=== PATIENT | male | born 1990 | race Caucasian/White ===

== ENCOUNTER 2021-05-21 07:40 | Emergency (ER) | payer OTHER, SELFPAY ==
[2021-05-21 07:44] VITALS: BP 160/105; PULSE 110; RESP 22; TEMP 36.6; O2SAT 100; BMI 32.5
--- NOTE | 2021-05-21 08:02 | ED.PSYCH ---
HPI - Psych General Chief Complaint: Psychiatric Symptoms Stated Complaint: Depressed, violent, angry, drinking problem Time Seen by Provider: 05/21/21 08:02 Source: patient Mode of arrival: ambulatory Limitations: no limitations History of Present Illness MD complaint: suicidal ideation and feels depressed Onset (ago): day(s) Duration: constant History of same: Yes Relieving factors: none Exacerbating factors: alcohol Context: recent alcohol abuse Associated psychiatric symptoms: depression and suicidal ideation Associated symptoms: denies other symptoms Treatments prior to arrival: none If self harm: admits thoughts of self harm Related Data Allergies Allergy/AdvReac Type Severity Reaction Status Date / Time walnut Allergy Intermediate SWELLING Unverified 07/06/20 17:23 banana Allergy Hives Verified 05/21/21 08:03 Review of Systems Review of Systems: Constitutional : No Fever, No Chills ENT/Mouth : No Ear Pain, No Nasal Congestion, No sore throat Eyes: No Eye Pain, No Swelling, No Redness Cardiovascular : No Chest Pain, No SOB Respiratory : No Cough, No Sputum, No Dyspnea Gastrointestinal : No Nausea, No Vomiting, No Diarrhea, No Hematochezia, No Melena Genitourinary : No Dysuria, No Urinary Frequency, No Hematuria Musculoskeletal : No Myalgias Skin : No Skin Lesions, No rash Neuro : No Weakness, No Numbness, No Paresthesias, No Dizziness, No Headache Psych : positive Anxiety, positive Depression, positive SI no HI Heme/Lymph: No Lymphadenopathy Endocrine : No Polyuria, No Polydipsia All other systems reviewed and are negative PMFSH Past Medical History Attestation statement: The following information was validated with the patient. Medical History HTN (hypertension) Social History Social History (Updated 05/21/21 @ 08:24 by Liberty Oquendo DO) Alcohol intake: current Use of substances other than those prescribed or required for medical reasons: No Advance Directives: Yes Advance Directives Information Provided: Yes Advance Directives on File: No Physical Exam Vital Signs: Vital Signs: Last Vital Signs Temp 98.5 F 05/21/21 13:16 Pulse 100 05/21/21 13:16 Resp 20 05/21/21 13:16 BP 127/66 05/21/21 13:16 Pulse Ox 99 05/21/21 13:16 Body Mass Index 32.5 Appearance: Alert. Oriented X3. No acute distress. Eyes: Pupils equal, round and reactive to light. ENT: Pharynx normal. Neck: Normal inspection. Neck supple. CVS: Normal heart rate and rhythm. Pulses normal. Respiratory: No respiratory distress. Breath sounds normal. Abdomen: Soft and nontender. Skin: Skin warm and dry. Normal skin color. Normal skin turgor. Extremities: No lower extremity edema. No calf ttp Neuro: Oriented X 3. No motor deficit. No sensory deficit. CN 2-12 intact Psych: pos anxiety/depression, pos SI, no HI Course Course Course Narrative: request for repeat VS Physician observation started at 220pm. Patient placed in physician observation because the patient needed more time for BHN to evaluate him and see the need for psych admission. At the time observation was started the patient's vitals were stable, patient is alert and oriented improved after ativan, Neuro: nonfocal, CV RRR, Lungs clear per CARE team, working on EATs vs detox bed MDM - Psych MDM Narrative Medical decision making narrative: 30 yo male with etoh abuse here with SI - will need labs, BHN consult, PRN ativan dispo per N recommendations at this time. Lab Data Result diagrams: 05/21/21 08:36 05/21/21 08:36 Labs: Lab Results 05/21/21 05/21/21 05/21/21 Range/Units 08:36 08:36 08:36 WBC 5.8 (4.8-10.8) X10*3/uL RBC 5.03 (4.60-5.80) X10*6/uL Hgb 15.4 (14.0-18.0) g/dl Hct 46.0 (42-52) % MCV 91.5 (80-98) fL MCH 30.6 (27.0-33.0) pg MCHC 33.5 (31.0-36.0) g/dl RDW 13.2 (11.0-16.0) % Plt Count 309 (160-400) X10*3/uL MPV 8.7 L (9.4-12.4) fL Immature Gran % (Auto) 0.5 H (0.0-0.4) % Neut % (Auto) 53.8 (45-73) % Lymph % (Auto) 24.7 (20-40) % [place] % (Auto) 11.7 H (2-11) % Eos % (Auto) 8.6 H (0-4) % Baso % (Auto) 0.7 (0-2) % Lymph # (Auto) 1.4 (1.2-4.9) X10*3/uL [place] # (Auto) 0.7 (0.1-1.2) X10*3/uL Eos # (Auto) 0.5 H (0.0-0.4) X10*3/uL Baso # (Auto) 0.0 (0.0-0.2) X10*3/uL Abs Immat Gran (auto) 0.03 (0.00-0.03) X10*3/uL Absolute Neuts (auto) 3.1 (2.0-8.3) X10*3/uL Absolute Nucleated RBC 0.000 (0.0-0.012) X10*3/uL Nucleated RBC % (auto) 0.0 (0.0-0.2) /100WBC Sodium 141 (135-145) mmol/L Potassium 4.9 (3.3-5.1) mmol/L Chloride 106 (96-108) mmol/L Carbon Dioxide 28 (22-29) mmol/L Anion Gap 12 (12-20) BUN 8 L (9-16) mg/dL Creatinine 0.89 (0.5-1.4) mg/dL Estim Creat Clear Calc 117.9 Estimated GFR > 60 Random Glucose 93 (60-115) mg/dL Calcium 9.2 (8.4-10.2) mg/dL Magnesium 2.2 (1.6-2.6) mg/dL Total Bilirubin 0.4 (0.0-1.0) mg/dL Direct Bilirubin 0.2 (0.0-0.5) mg/dL AST 41 H (5-37) U/L ALT 69 H (0-40) U/L Alkaline Phosphatase 131 H (39-117) U/L Total Protein 7.1 (6.5-8.0) g/dL Albumin 4.3 (3.5-5.0) g/dL Urine Opiates Screen (Not Detect) Ur Barbiturates Screen (Not Detect) Ur Phencyclidine Scrn (Not Detect) Ur Amphetamines Screen (Not Detect) U Benzodiazepines Scrn (Not Detect) Urine Cocaine Screen (Not Detect) U Marijuana (THC) Screen (Not Detect) Ethyl Alcohol mg/dL COVID-19 (XUAN) Negative (Negative) COVID-19 Clin Com See Note 05/21/21 05/21/21 Range/Units 08:36 10:49 WBC (4.8-10.8) X10*3/uL RBC (4.60-5.80) X10*6/uL Hgb (14.0-18.0) g/dl Hct (42-52) % MCV (80-98) fL MCH (27.0-33.0) pg MCHC (31.0-36.0) g/dl RDW (11.0-16.0) % Plt Count (160-400) X10*3/uL MPV (9.4-12.4) fL Immature Gran % (Auto) (0.0-0.4) % Neut % (Auto) (45-73) % Lymph % (Auto) (20-40) % [place] % (Auto) (2-11) % Eos % (Auto) (0-4) % Baso % (Auto) (0-2) % Lymph # (Auto) (1.2-4.9) X10*3/uL [place] # (Auto) (0.1-1.2) X10*3/uL Eos # (Auto) (0.0-0.4) X10*3/uL Baso # (Auto) (0.0-0.2) X10*3/uL Abs Immat Gran (auto) (0.00-0.03) X10*3/uL Absolute Neuts (auto) (2.0-8.3) X10*3/uL Absolute Nucleated RBC (0.0-0.012) X10*3/uL Nucleated RBC % (auto) (0.0-0.2) /100WBC Sodium (135-145) mmol/L Potassium (3.3-5.1) mmol/L Chloride (96-108) mmol/L Carbon Dioxide (22-29) mmol/L Anion Gap (12-20) BUN (9-16) mg/dL Creatinine (0.5-1.4) mg/dL Estim Creat Clear Calc Estimated GFR Random Glucose (60-115) mg/dL Calcium (8.4-10.2) mg/dL Magnesium (1.6-2.6) mg/dL Total Bilirubin (0.0-1.0) mg/dL Direct Bilirubin (0.0-0.5) mg/dL AST (5-37) U/L ALT (0-40) U/L Alkaline Phosphatase (39-117) U/L Total Protein (6.5-8.0) g/dL Albumin (3.5-5.0) g/dL Urine Opiates Screen Not Detected (Not Detect) Ur Barbiturates Screen Not Detected (Not Detect) Ur Phencyclidine Scrn Not Detected (Not Detect) Ur Amphetamines Screen Not Detected (Not Detect) U Benzodiazepines Scrn Not Detected (Not Detect) Urine Cocaine Screen POSITIVE H (Not Detect) U Marijuana (THC) Screen POSITIVE H (Not Detect) Ethyl Alcohol 46 mg/dL COVID-19 (XUAN) (Negative) COVID-19 Clin Com Discharge Plan Discharge Clinical Impression: Substance abuse Depression Qualifiers: Depression Type: other depression Qualified Code(s): F32.89 - Other specified depressive episodes
[2021-05-21] MEDS: Acetaminophen 325 MG TABLET 650 MG PO (08:15)
[2021-05-21] MEDS: LORazepam 1 MG TABLET 2 MG PO (08:16)
[2021-05-21 08:44] LABS: Basophils Percent Auto 0.7 % (0-2); Eosinophils Absolute Auto 0.5 X10*3/uL (0.0-0.4); Eosinophils Percent Auto 8.6 % (0-4); Hemoglobin 15.4 g/dl (14.0-18.0); Imm Gran Abs Auto 0.03 X10*3/uL (0.00-0.03); Imm Gran Pct Auto 0.5 % (0.0-0.4); Lymphocytes Absolute Auto 1.4 X10*3/uL (1.2-4.9); Lymphocytes Percent Auto 24.7 % (20-40); MANUAL DIFF FLAG NO; Mean Corpuscular HGB Conc 33.5 g/dl (31.0-36.0); Mean Corpuscular Hemoglobin 30.6 pg (27.0-33.0); Mean Corpuscular Volume 91.5 fL (80-98); Mean Platelet Volume 8.7 fL (9.4-12.4); Monocytes Absolute Auto 0.7 X10*3/uL (0.1-1.2); Monocytes Percent Auto 11.7 % (2-11); Neutrophils Absolute Auto 3.1 X10*3/uL (2.0-8.3); Neutrophils Percent Auto 53.8 % (45-73); Platelet Count 309 X10*3/uL (160-400); Red Blood Count 5.03 X10*6/uL (4.60-5.80); Red Cell Distribution Width 13.2 % (11.0-16.0); White Blood Count 5.8 X10*3/uL (4.8-10.8)
[2021-05-21 08:58] LABS: COVID-19 Test Negative (Negative)
[2021-05-21 09:09] LABS: Alanine Aminotransferase 69 U/L (0-40); Albumin Level 4.3 g/dL (3.5-5.0); Alkaline Phosphatase 131 U/L (39-117); Anion Gap 12 (12-20); Aspartate Amino Transferase 41 U/L (5-37); Bilirubin Direct 0.2 mg/dL (0.0-0.5); Bilirubin Total 0.4 mg/dL (0.0-1.0); Blood Urea Nitrogen 8 mg/dL (9-16); Calcium 9.2 mg/dL (8.4-10.2); Carbon Dioxide 28 mmol/L (22-29); Chloride 106 mmol/L (96-108); Creatinine Clr Calc Pharmacy 117.9; Estimated Glomerular Filt Rate > 60; Glucose Random 93 mg/dL (60-115); Magnesium 2.2 mg/dL (1.6-2.6); Potassium 4.9 mmol/L (3.3-5.1); Sodium 141 mmol/L (135-145); Total Protein 7.1 g/dL (6.5-8.0)
[2021-05-21 09:21] LABS: Ethanol 46 mg/dL
[2021-05-21 11:36] LABS: Amphetamine Screen Urine Not Detected (Not Detect); Barbiturates, Urine Not Detected (Not Detect); Benzodiazepines Screen Urine Not Detected (Not Detect); Cannabinoid Screen Urine POSITIVE (Not Detect); Cocaine Screen Urine POSITIVE (Not Detect); Opiate Screen Urine Not Detected (Not Detect); Phencyclidine Screen Urine Not Detected (Not Detect)
--- NOTE | 2021-05-21 12:30 | PC.NURSE ---
CARE teamNicolás, at bedside for pt initial assessment.
[2021-05-21 13:16] VITALS: BP 127/66; PULSE 100; RESP 20; TEMP 36.9; O2SAT 99
--- NOTE | 2021-05-21 14:47 | MHC.RECOVSUP ---
Recovery Support note: Patient is a 30 year old Yoruba speaking male who presented to [facility] due to depression and SI. This life insurance underwriter met with patient to discuss his alcohol use and treatment options. Patient reports drinking 10+ beers and some liquor daily. Patient reports he gets grouchy when he does not drink. Patient was tearful as he reported a strong desire to stop drinking. Patient reports he has tried maintaining sobriety in the past but has been unsuccessful. Patient expressed interest in going to [facility] however reports he does not want to go to [place] or [place]. This life insurance underwriter contacted [facility] facilities and there are no beds available at this time. Discussed outpatient supports with patient, including IOP, outpatient therapy, recovery coaching and [facility] [place]. Patient was receptive of the information provided and was willing to meet with a Database Marketing Manager. Patient expressed interest in medications for alcohol use disorder. Discussed medications with patient and provided patient with information on the [facility]. Patient reports no questions at this time. Patient met with Baldo, Database Marketing Manager, and discussed the recovery community in [place]. Discussed case with CARE Team.
--- NOTE | 2021-05-22 06:17 | PC.NURSE ---
Patient slept through the night, denied distress, asymptomatic of withdrawal, care team and swimming coach working jointly to find detox bed for the patient, patient's behavior is calm, quiet, isolative, and appropriate. VSS, appetite good, patient is not on any medication at this time, will continue to monitor.
[2021-05-22 06:18] VITALS: BP 142/87; PULSE 65; RESP 16; TEMP 36.3; O2SAT 98
[2021-05-22 07:45] VITALS: BP 143/91; PULSE 71; RESP 17; TEMP 36.8; O2SAT 97
--- NOTE | 2021-05-22 09:31 | MHC.CARE ---
0900-Spoke with pt regarding his desire to enter a detox program. Pt is still interested, however he only wants to go to detox in [place], stating that other facilities are Too far away . Follow up e mail sent to [facility] (Recovery Team facilitated this) regarding the outcome of the conversation and pt's continued interest in detox and his stipulations. Will revisit this conversation with pt, when a bed becomes available.
--- NOTE | 2021-05-22 10:34 | PC.NURSE ---
PT HAS BEEN CALM AND COOPERATIVE WAITING FOR GROUP EXERCISE MANAGER, AND DETOX BED
--- NOTE | 2021-05-22 13:07 | MHC.RECOVSUP ---
? Reason for consult:Continuity of care o Current location:[facility] o Identified substance use concernETOH: - Withdrawal - Seeking ATS (detox) - Support ? Intervention: o ATS bed search started/completed/in process o MAT started or to be started o Community resources provided o Harm reduction discussion ? Plan: o Referral to [facility] o Bed search in progress to o Patient awaiting crisis evaluation o Patient to follow up with [facility] after discharge ? Additional information: Pt. seeking detox, pt. has bed at [facility]
--- NOTE | 2021-05-22 13:56 | MHC.RECOVSUP ---
? Reason for consult:Continuity of care o Current location: [facility] o Identified substance use concern: ETOH - Withdrawal - Seeking ATS (detox) - Support ? Intervention: o ATS bed search started/completed/in process o MAT started or to be started o Community resources provided o Harm reduction discussion ? Plan: o Referral to [facility] o Bed search in progress to o Follow up tomorrow o Patient awaiting crisis evaluation o Patient to follow up with [facility] after discharge ? Additional information: PT.seeking detox going [facility]
[2021-05-22] MEDS: LORazepam 1 MG TABLET 2 MG PO (13:59)
== END 2021-05-22 14:11 | disposition home or self-care (01) ==
PROVIDERS: Emergency Provider Emergency Medicine
DX: F32.89 Other specified depressive episodes (principal); F19.10 Other psychoactive substance abuse, uncomplicated; R45.851 Suicidal ideations; I10 Essential (primary) hypertension; Z20.822 Contact with and (suspected) exposure to COVID-19; F10.10 Alcohol abuse, uncomplicated; Y90.2 Blood alcohol level of 40-59 mg/100 ml
CPT/HCPCS: 36415; 80048; 80076; 80307; 82077; 83735; 85025; 87635; 99285

== ENCOUNTER 2023-08-05 23:09 | Emergency (ER) | payer OTHER, SELFPAY ==
[2023-08-05 23:23] VITALS: BP 154/104; PULSE 114; O2SAT 97
[2023-08-05 23:26] VITALS: BP 129/69; PULSE 103; RESP 18; TEMP 36.6; O2SAT 94; BMI 30.9
== END 2023-08-06 00:56 | disposition left against medical advice (07) ==
PROVIDERS: Emergency Provider Emergency Medicine
DX: R20.0 Anesthesia of skin (principal); I10 Essential (primary) hypertension
CPT/HCPCS: 99281